=== PATIENT | male | born 1960 | race Caucasian/White ===

== ENCOUNTER → 2023-09-22 10:04 | Outpatient (REF) | payer OTHER, MEDICARE, SELFPAY | LOC: RAD 10:04 | PROVIDERS: ATTENDING PHYSICIAN Family Medicine | DX: R42 Dizziness and giddiness (principal); Z87.891 Personal history of nicotine dependence | CPT/HCPCS: 76770 ==

== ENCOUNTER → 2023-11-09 16:49 | Outpatient (REF) | payer MEDICARE, OTHER, SELFPAY | LOC: HWRAD 16:49 | PROVIDERS: ATTENDING PHYSICIAN Family Medicine | DX: R10.31 Right lower quadrant pain (principal) | CPT/HCPCS: 73522 ==

== ENCOUNTER → 2024-09-13 12:00 | Outpatient (REF) | payer MEDICARE, OTHER, SELFPAY | LOC: DHSLP 12:00 | PROVIDERS: ATTENDING PHYSICIAN Internal Medicine Critical Care Medicine; FAMILY PHYSICIAN Family Medicine | DX: G47.30 Sleep apnea, unspecified (principal); R06.83 Snoring | CPT/HCPCS: 95800 ==